=== PATIENT | female | born 1985 | race American Indian/Alaskan Native ===

== ENCOUNTER 2022-04-28 20:36 | Inpatient (IN) | payer MEDICAID ==
[2022-04-28] MEDS ORDERED: OXYTOCIN DRIP 30,000 MILLIUNITS/500 ML BAG IV ONE (21:14)
[2022-04-28] MEDS ORDERED: LACTATED RINGERS 0 ML ONE (21:15)
[2022-04-28] MEDS ORDERED: OXYTOCIN 10 UNIT/1 ML INJ ONE (21:17)
--- NOTE | 2022-04-28 22:03 | History and Physical Report ---
History of Present Illness Date of examination: 04/28/22 Date of admission: 04/28/22 21:55 Chief complaint: Contractions History of present illness: 36-year-old -0-0-3 at 39+5 weeks presents to labor and delivery triage with advanced cervical dilatation of 10 cm and active uterine contractions. records are currently not available for review. Past History Past Medical History: no pertinent history Past Surgical History: no surgical history Social history: - Obstetrical History Expected Date of Delivery: 04/30/22 Actual Gestation: 39 Week(s) 5 Day(s) : 4 Para: 3 Hx # Term Pregnancies: 3 Number of Pregnancies: 0 Spontaneous Abortions: 0 Induced : 0 Number of Living Children: 3 Medications and Allergies Allergies Allergy/AdvReac Type Severity Reaction Status Date / Time No Known Allergies Allergy Unverified 09/19/14 11:17 Home Medications Medication Instructions Recorded Confirmed Last Taken Type Vit-Fe Fumar-FA [ 1 tab PO QDAY 06/06/18 06/06/18 1 Week Ago History Vitamin] ~05/30/18 Ferrous Sulfate 325 mg PO BID #60 tablet. 06/07/18 Unknown Rx Ibuprofen [Motrin] 600 mg PO Q8H PRN #30 tablet 06/07/18 Unknown Rx oxyCODONE /ACETAMINOPHEN [Percocet 1 tab PO Q6HR PRN #10 tablet 06/07/18 Unknown Rx 5/325] Review of Systems Genitourinary: leakage of fluid, pelvic pain, contractions - Vital Signs Vital signs: Vital Signs Temp 97.8 F 04/28/22 20:41 Temp Pulse Resp BP Pulse Ox 97.8 F 62 133/61 100 04/28/22 20:41 04/28/22 22:00 04/28/22 21:54 04/28/22 22:00 - Physical Exam Breasts: Positive: deferred Cardiovascular: Regular rate Lungs: Positive: Clear to auscultation Abdomen: Positive: normal appearance Results All other labs normal. Assessment and Plan - Patient Problems (1) Precipitous delivery Current Visit: Yes Status: Acute Plan to address problem: Admit to labor and delivery (2) Active labor Current Visit: No Status: Acute
[2022-04-28] MEDS ORDERED: diphenhydrAMINE 25 MG CAP PO PRN (22:10)
[2022-04-28] MEDS ORDERED: LANOLIN/ZINC/DIMETHICONE (LANSINOH) 7 GM TP PRN (22:10)
[2022-04-28] MEDS ORDERED: ONDANSETRON 4 MG/2 ML INJ IV PRN (22:10)
[2022-04-28] MEDS ORDERED: PROMETHAZINE 25 MG RECT SUPP PR PRN (22:10)
[2022-04-28] MEDS ORDERED: MAGNESIUM HYDROXIDE (MOM) ORAL LIQD UDC PO PRN (22:10)
[2022-04-28] MEDS ORDERED: PROMETHAZINE 25 MG TAB PO PRN (22:10)
[2022-04-28] MEDS ORDERED: WITCH HAZEL/ GLYCERIN PAD TP PRN (22:10)
--- NOTE | 2022-04-28 22:10 | Procedure Note ---
OB Delivery Note - Delivery Date of Delivery: 04/28/22 Surgeon: VERONICA ESPINOZA Estimated blood loss: <100cc - Vaginal Delivery presentation: vertex Delivery position: OA Intrapartum events: precipitous labor- <3hr Delivery monitor: external FHT, external uterine Route of delivery: Delivery placenta: spontaneous Delivery cord: 3 umbilical vessels Episiotomy: none Delivery laceration: none Anesthesia: none - Infant A at 1 minute: 8 at 5 minutes: 9 Infant Gender: Male (weight 6lbs 8oz)
[2022-04-28] MEDS ORDERED: oxyCODONE /ACETAMINOPHEN 5-325MG TAB PO PRN (22:11)
[2022-04-28] MEDS ORDERED: ACETAMINOPHEN 325 MG TAB PO PRN (22:11)
[2022-04-29] MEDS: IBUPROFEN 800 MG TAB PO SCH ×4 (00:56→18:16)
--- NOTE | 2022-04-29 12:16 | Progress Note ---
Assessment and Plan A: PPD#1 s/p at term Limited care Obesity P: CBC, Type and Screen records obtained Continue to monitor clinical status Subjective - Subjective Date of service: 04/29/22 Principal diagnosis: s/p at term, limited care Interval history: No overnight events Patient reports: appetite normal, voiding normally, pain well controlled, ambulating normally [place]: doing well Objective - Vital Signs Latest vital signs: Vital Signs Temp Pulse Resp BP BP Pulse Ox Pulse Ox 04/29/22 09:00 100 04/29/22 08:17 98.1 F 69 18 114/60 100 04/29/22 06:00 18 04/29/22 04:23 98.0 F 72 20 107/63 98 04/29/22 01:56 18 04/29/22 00:56 20 04/28/22 23:10 98 F 18 120/67 100 100 04/28/22 22:55 61 100 04/28/22 22:51 74 68 L 04/28/22 22:50 74 127/69 72 L 04/28/22 22:49 98.6 F 04/28/22 22:45 66 100 04/28/22 22:40 64 100 04/28/22 22:35 56 L 100 04/28/22 22:30 59 L 100 04/28/22 22:26 77 149/78 04/28/22 22:25 85 100 04/28/22 22:20 57 L 100 04/28/22 22:18 70 93 04/28/22 22:15 65 100 04/28/22 22:10 62 100 04/28/22 22:07 86 80 L 04/28/22 22:05 64 100 04/28/22 22:00 62 100 04/28/22 21:55 66 100 04/28/22 21:54 77 133/61 04/28/22 21:50 74 100 04/28/22 21:49 68 78 L 04/28/22 21:45 73 100 04/28/22 21:40 80 98 04/28/22 21:35 73 100 04/28/22 21:30 91 H 100 04/28/22 21:26 83 136/90 04/28/22 21:25 86 100 04/28/22 21:20 63 47 L 04/28/22 20:41 97.8 F Intake and Output 08/12/22 08/13/22 08/13/22 22:59 06:59 14:59 Intake Total 600 Output Total 900 Balance -300 Intake: Oral 120 Intake, Free Water 480 Output: Urine 900 Void 900 Other: Total, Intake Amount 120 Total, Output Amount 500 # Voids Void 1 Weight 95.254 kg - Exam Breasts: Present: deferred Abdomen: Present: soft (obese ) Uterus: Present: fundal height at umbilicus Extremities: Present: normal
[2022-04-30] MEDS ORDERED: TETANUS,DIPH,PERTUSS(ACELL) VACCINE 0.5 ML SYRINGE IM ONE (06:00)
[2022-04-30 07:06] LABS: Hematocrit 27.7 % (30.3-42.9); Hemoglobin 8.5 gm/dl (10.1-14.3); Mean Corpuscular HGB Conc 31 % (30-34); Mean Corpuscular Volume 78 fl (79-97); Platelet Count 191 K/mm3 (140-440); Red Blood Count 3.54 M/mm3 (3.65-5.03); Red Cell Distribution Width 16.7 % (13.2-15.2)
[2022-04-30] MEDS ORDERED: LACTULOSE 20 GM/30 ML ORAL LIQD PO SCH (10:00)
[2022-04-30] MEDS: IBUPROFEN 800 MG TAB PO SCH ×2 (10:04)
--- NOTE | 2022-04-30 10:51 | Progress Note ---
Assessment and Plan A: PPD#2 s/p at term Limited care Obesity P: Anticipate discharge later today Subjective - Subjective Date of service: 04/30/22 Principal diagnosis: s/p at term, limited care Interval history: No overnight events Patient reports: appetite normal, voiding normally, pain well controlled : doing well Objective - Vital Signs Latest vital signs: Vital Signs Temp Pulse Resp BP Pulse Ox Pulse Ox 04/30/22 09:12 98.1 F 65 18 116/73 100 04/30/22 00:49 98.0 F 67 18 123/68 100 04/30/22 00:00 18 04/29/22 20:13 100 04/29/22 17:22 97.9 F 76 18 118/58 100 04/29/22 12:50 98.0 F 69 18 104/56 99 Intake and Output 04/29/22 04/30/22 04/30/22 22:59 06:59 14:59 Intake Total 360 480 Balance 360 480 Intake: Intake, Free Water 360 480 Other: # Voids Void 1 1 - Exam Breasts: Present: deferred Abdomen: Present: soft Extremities: Present: normal - Labs Labs: Abnormal lab results 04/29/22 Range/Units 06:40 RBC 3.54 L (3.65-5.03) M/mm3 Hgb 8.5 L (10.1-14.3) gm/dl Hct 27.7 L (30.3-42.9) % MCV 78 L (79-97) fl MCH 24 L (28-32) pg RDW 16.7 H (13.2-15.2) %
--- NOTE | 2022-04-30 10:52 | Discharge Summary ---
Providers - Providers Date of Admission: 04/28/22 22:10 Date of discharge: 04/30/22 Attending physician: VERONICA ESPINOZA Primary care physician: VERONICA ESPINOZA Hospitalization Reason for admission: active labor Delivery: Procedure details: Please see delivery note Episiotomy: none Laceration: none Other procedures: none complications: none Discharge diagnosis: IUP at term delivered [place] baby: male Hospital course: Pt was admitted in active labor and went on to have a spontaneous vaginal delivery which she tolerated well. Her course was complicated by acute on chronic anemia. She will follow up in the office in 6 wks. Condition at discharge: Stable Disposition: 01 HOME / SELF CARE / HOMELESS - Discharge Diagnoses (1) Precipitous delivery Status: Acute (2) Active labor Status: Acute Plan - Discharge Medications Prescriptions: Ferrous Sulfate [Feosol 325 MG tab] 325 mg PO BID #60 tablet Ibuprofen [Motrin] 800 mg PO Q8HR PRN #30 tablet PRN Reason: Pain, Moderate (4-6) - Provider Discharge Summary Activity: routine, no sex for 6 weeks, no heavy lifting 4 weeks, no strenuous exercise Diet: routine Instructions: routine Additional instructions: [] Smoking cessation referral if applicable(refer to patient education folder for contact #) [] Refer to [facility]'s [facility] Booklet Call your doctor immediately for: * Fever > 100.5 * Heavy vaginal bleeding ( >1 pad per hour) * Severe persistent headache * Shortness of breath * Reddened, hot, painful area to leg or breast * Drainage or odor from incision. * Keep incision clean and dry at all times and follow doctor's instructions regarding bathing/showering - Follow up plan Follow up: JUNE ALMONTE, [facility] [Advanced Practice Nurse] - 6 Weeks (Please call to schedule your son's circumcision before he is one month old. ) Forms: [facility] Discharge Summary
[2022-04-30 18:40] VITALS: BP 128/79
== END 2022-04-30 16:25 | disposition home or self-care (01) | DRG 775 ==
LOC: TRG 20:36 → APU 20:38 → LD 21:15 → UNDOADMIN 21:55 → TRG 21:55 → LD 22:10 → OB 22:59
PROVIDERS: ADMIT Obstetrics & Gynecology; ATTEND Obstetrics & Gynecology
PROC: 10E0XZZ Delivery of Products of Conception, External Approach (ICD-10-PCS; principal; 2022-04-28)
PROC: 3E0234Z Introduction of Serum, Toxoid and Vaccine into Muscle, Percutaneous Approach (ICD-10-PCS; 2022-04-30)
DX: O62.3 Precipitate labor (principal); Z37.0 Single live birth; Z3A.39 39 weeks gestation of pregnancy; Z20.822 Contact with and (suspected) exposure to COVID-19; O99.214 Obesity complicating childbirth; O90.81 Anemia of the puerperium; Z23 Encounter for immunization
CPT/HCPCS: 36415; 85027; 86850; 86900; 86901; 87806; 90471; 90715; G0378; U0003